=== PATIENT | male | born 1990 | race Caucasian/White ===

== ENCOUNTER 2016-08-05 04:54 | Emergency (ER) | payer OTHER ==
[2016-08-05 05:05] VITALS: TEMP 98.1
[2016-08-05 05:35] LABS: Basophils % (A) 1 %; CH 32.9; CHCM 35.6; Eosinophils # (A) 0.2 k/uL (0-0.7); Eosinophils % (A) 4 %; HCT 42.6 % (39.0-53.0); HDW 2.68; HGB 14.4 gm/dL (13.0-17.5); Luc # (Auto) 0.13; Luc % (Auto) 2; Lymphocytes # (A) 1.2 k/uL (1.0-4.8); Lymphocytes % (A) 20 %; MCH 31.4 pg (25.0-35.0); MCHC 33.8 g/dL (31.0-37.0); MCV 92.8 fL (80.0-100.0); Mean Platelet Volume 6.7; Monocytes # (A) 0.5 k/uL (0-1.0); Monocytes % (A) 8 %; Neutrophils % (A) 66 %; RBC 4.59 m/uL (4.30-5.90); RDW 12.7 % (11.5-15.5); WBC 6.1 k/uL (3.8-10.6); WBC (Perox) 6.37
[2016-08-05 05:45] LABS: ALT 28 U/L (21-72); AST 23 U/L (17-59); Alkaline Phosphatase 66 U/L (38-126); Anion Gap 12 mmol/L; Blood Urea Nitrogen 10 mg/dL (9-20); Calcium 9.3 mg/dL (8.4-10.2); Carbon Dioxide 23 mmol/L (22-30); Chloride 104 mmol/L (98-107); Glucose 100 mg/dL (74-99); Non-African American GFR(MDRD) >60 (>60 ml/min/1.73 sqM); Potassium 3.8 mmol/L (3.5-5.1); Sodium 139 mmol/L (137-145); Total Bilirubin 0.6 mg/dL (0.2-1.3)
--- NOTE | 2016-08-05 07:06 | ED ---
Psych HPI - General Source: patient Mode of arrival: EMS - History of Present Illness MD Complaint: other -: minutes(s) Associated Psychiatric Symptoms: other History of same: Yes <Jb Murillo - Last Filed: 08/05/16 07:06> <Abisai Fisher - Last Filed: 08/05/16 09:57> - General Chief Complaint: Psychiatric Symptoms Stated Complaint: can't sleep Time Seen by Provider: 08/05/16 05:03 - History of Present Illness Initial Comments: This patient is 26-year-old man brought by EMS to be evaluated for worsening of his psychiatric condition. The patient reportedly has a history of schizophrenia and today went to the home of his parents. They reportedly have a restraining order because the patient has at times been violent with them. They phoned EMS who brought the patient here to be evaluated. Here the patient is requesting sleeping pills, stating that he feels like he is going crazy. He is not able to give any additional history. He counters every question from this examiner by asking "are you going to give any sleeping pills?" (Jb Murillo) - Related Data Home Medications Medication Instructions Recorded Confirmed Divalproex Sodium [Divalproex 1,000 mg PO HS 08/05/16 08/05/16 Sodium ER] Divalproex Sodium [Divalproex 500 mg PO QAM 08/05/16 08/05/16 Sodium ER] OLANZapine [ZyPREXA] 20 mg PO HS 08/05/16 08/05/16 QUEtiapine FUMARATE [SEROquel] 400 mg PO HS 08/05/16 08/05/16 Allergies Allergy/AdvReac Type Severity Reaction Status Date / Time No Known Allergies Allergy Verified 08/05/16 05:05 Review of Systems ROS Other: All systems not noted in ROS Statement are negative. Limitations: ROS unobtainable due to patients medical condition <Jb Murillo - Last Filed: 08/05/16 07:06> ROS Other: All systems not noted in ROS Statement are negative. <Abisai Fisher - Last Filed: 08/05/16 09:57> ROS Statement: Those systems with pertinent positive or pertinent negative responses have been documented in the HPI. Past Medical History Past Medical History: No Reported History History of Any Multi-Drug Resistant Organisms: None Reported Past Surgical History: No Surgical Hx Reported Past Psychological History: Anxiety, Bipolar, Schizophrenia Smoking Status: Current every day smoker Past Alcohol Use History: None Reported Past Drug Use History: None Reported <LidiaJb - Last Filed: 08/05/16 07:06> General Exam Limitations: no limitations General appearance: alert, in no apparent distress Head exam: Present: atraumatic, normocephalic Eye exam: Present: normal appearance. Absent: scleral icterus, conjunctival injection ENT exam: Present: normal oropharynx Neck exam: Present: normal inspection Respiratory exam: Present: normal lung sounds bilaterally. Absent: respiratory distress, wheezes, rales, rhonchi, stridor Cardiovascular Exam: Present: regular rate, normal rhythm, normal heart sounds. Absent: systolic murmur, diastolic murmur, rubs, gallop GI/Abdominal exam: Present: soft. Absent: distended, tenderness, guarding, rebound, mass Extremities exam: Present: normal inspection, normal capillary refill. Absent: pedal edema, calf tenderness Neurological exam: Present: alert, normal gait. Absent: motor sensory deficit Psychiatric exam: Present: agitated, flat affect. Absent: homicidal ideation, suicidal ideation Skin exam: Present: warm, dry, intact, normal color. Absent: rash <LidiaJb - Last Filed: 08/05/16 07:06> Medical Decision Making - Lab Data Result diagrams: 08/05/16 05:02 08/05/16 05:02 <Jb Murillo - Last Filed: 08/05/16 07:06> - Lab Data Result diagrams: 08/05/16 05:02 08/05/16 05:02 <Abisai Fisher - Last Filed: 08/05/16 09:57> - Medical Decision Making The patient was evaluated by the [facility] service and will be discharged with outpatient treatment. He currently is not a risk to himself or anyone else. He also was given referrals for housing. (Abisai Fisher) - Lab Data Lab Results 08/05/16 08/05/16 08/05/16 Range/Units 05:02 05:02 05:30 WBC 6.1 (3.8-10.6) k/uL RBC 4.59 (4.30-5.90) m/uL Hgb 14.4 (13.0-17.5) gm/dL Hct 42.6 (39.0-53.0) % MCV 92.8 (80.0-100.0) fL MCH 31.4 (25.0-35.0) pg MCHC 33.8 (31.0-37.0) g/dL RDW 12.7 (11.5-15.5) % Plt Count 272 (150-450) k/uL Neutrophils % 66 % Lymphocytes % 20 % Monocytes % 8 % Eosinophils % 4 % Basophils % 1 % Neutrophils # 4.0 (1.3-7.7) k/uL Lymphocytes # 1.2 (1.0-4.8) k/uL Monocytes # 0.5 (0-1.0) k/uL Eosinophils # 0.2 (0-0.7) k/uL Basophils # 0.0 (0-0.2) k/uL Sodium 139 (137-145) mmol/L Potassium 3.8 (3.5-5.1) mmol/L Chloride 104 (98-107) mmol/L Carbon Dioxide 23 (22-30) mmol/L Anion Gap 12 mmol/L BUN 10 (9-20) mg/dL Creatinine 0.90 (0.66-1.25) mg/dL Est GFR (MDRD) Af Amer >60 (>60 ml/min/1.73 sqM) Est GFR (MDRD) Non-Af >60 (>60 ml/min/1.73 sqM) Glucose 100 H (74-99) mg/dL Calcium 9.3 (8.4-10.2) mg/dL Total Bilirubin 0.6 (0.2-1.3) mg/dL AST 23 (17-59) U/L ALT 28 (21-72) U/L Alkaline Phosphatase 66 (38-126) U/L Total Protein 7.0 (6.3-8.2) g/dL Albumin 4.2 (3.5-5.0) g/dL Urine Opiates Screen Not Detected (NotDetected) Ur Oxycodone Screen Not Detected (NotDetected) Urine Methadone Screen Not Detected (NotDetected) Ur Propoxyphene Screen Not Detected (NotDetected) Ur Barbiturates Screen Not Detected (NotDetected) U Tricyclic Antidepress Not Detected (NotDetected) Ur Phencyclidine Scrn Not Detected (NotDetected) Ur Amphetamines Screen Not Detected (NotDetected) U Methamphetamines Scrn Not Detected (NotDetected) U Benzodiazepines Scrn Not Detected (NotDetected) Urine Cocaine Screen Not Detected (NotDetected) U Marijuana (THC) Screen Not Detected (NotDetected) Disposition <Jb Murillo - Last Filed: 08/05/16 07:06> <Abisai Fisher - Last Filed: 08/05/16 09:57> Clinical Impression: Chronic schizophrenia Disposition: HOME SELF-CARE Condition: Good Instructions: Schizophrenia (ED)
[2016-08-05] MEDS ORDERED: OLANZapine ODT 10 MG TAB PO SCH (09:00)
[2016-08-05 10:26] VITALS: BP 118/62; PULSE 82; RESP 17
== END 2016-08-05 10:25 | disposition home or self-care (01) ==
LOC: EC 04:54
DX: F20.5 Residual schizophrenia (principal); F31.9 Bipolar disorder, unspecified; F17.200 Nicotine dependence, unspecified, uncomplicated; Z79.899 Other long term (current) drug therapy
CPT/HCPCS: 36415; 80053; 80306; 82075; 85025; 99285

== ENCOUNTER 2016-08-05 14:30 | Inpatient (IN) | payer MEDICAID, OTHER ==
--- NOTE | 2016-08-05 15:31 | ED ---
General Adult HPI - General Chief complaint: Altered Mental Status Stated complaint: MENTAL HEALTH Time Seen by Provider: 08/05/16 14:50 Source: patient, EMS, RN notes reviewed Mode of arrival: EMS Limitations: no limitations, altered mental status - History of Present Illness Initial comments: Any sexual male with past history significant for schizophrenia. Patient comes in now he states it's because he cannot get any sleep but is not really making a lot of sense. Patient was here earlier today seen by [facility] and discharged home. Patient at one time stated he made it home and then came back to [place] and a second time he said he went to a homeless intermediate and came from there. An ambulance to bring him back is not apparent to call the ambulance. Patient is unable to complete a thought to tell us what his exact problem is he jumps from topic to topic and is very tangential. Patient denies any suicidal or homicidal ideations. When I walked in the room initially to evaluate him he was making himself vomit because he stated he did not want to food in his belly - Related Data Home Medications Medication Instructions Recorded Confirmed Divalproex Sodium [Divalproex 1,000 mg PO HS 08/05/16 08/05/16 Sodium ER] Divalproex Sodium [Divalproex 500 mg PO QAM 08/05/16 08/05/16 Sodium ER] OLANZapine [ZyPREXA] 20 mg PO HS 08/05/16 08/05/16 QUEtiapine FUMARATE [SEROquel] 400 mg PO HS 08/05/16 08/05/16 Allergies Allergy/AdvReac Type Severity Reaction Status Date / Time No Known Allergies Allergy Verified 08/05/16 14:46 Review of Systems ROS Statement: Those systems with pertinent positive or pertinent negative responses have been documented in the HPI. ROS Other: All systems not noted in ROS Statement are negative. Past Medical History Past Medical History: No Reported History History of Any Multi-Drug Resistant Organisms: None Reported Past Surgical History: No Surgical Hx Reported Past Psychological History: Anxiety, Bipolar, Schizophrenia Smoking Status: Former smoker Past Alcohol Use History: None Reported Past Drug Use History: None Reported General Exam - General Exam Comments Initial Comments: GENERAL: Patient is well-developed and well-nourished. Patient is nontoxic and well- hydrated and is in no acute distress. ENT: Neck is soft and supple. No significant lymphadenopathy is noted. Oropharynx is clear. Moist mucous membranes. Neck has full range of motion without eliciting any pain. EYES: The sclera were anicteric and conjunctiva were pink and moist. Extraocular movements were intact and pupils were equal round and reactive to light. Eyelids were unremarkable. PULMONARY: Unlabored respirations. Good breath sounds bilaterally. No audible rales rhonchi or wheezing was noted. CARDIOVASCULAR: There is a regular rate and rhythm without any murmurs gallops or rubs. ABDOMEN: Soft and nontender with normal bowel sounds. No palpable organomegaly was noted. There is no palpable pulsatile mass. SKIN: Skin is clear with no lesions or rashes and otherwise unremarkable. NEUROLOGIC: Patient is alert and unable to fully assess orientation secondary to the patient not answering all questions asked. Cranial nerves II through XII are grossly intact. Motor and sensory are also intact. Normal speech, volume and content. Symmetrical smile. MUSCULOSKELETAL: Normal extremities with adequate strength and full range of motion. . Patient is unable to even tell us where he has been since his last visit here this morning LYMPHATICS: No significant lymphadenopathy is noted PSYCHIATRIC: Patient has very tangential thought process and is unable to clearly articulate why he is in the emergency department Limitations: no limitations, altered mental status Course Vital Signs 08/05/16 08/05/16 14:47 16:17 Temperature 97 F L Pulse Rate 94 69 Respiratory 20 16 Rate Blood Pressure 119/56 128/58 O2 Sat by Pulse 97 97 Oximetry Medical Decision Making - Medical Decision Making [facility] came to see the patient and decided the patient needed admission. Patient signed in. - Lab Data Lab Results 08/05/16 Range/Units 16:14 Urine Opiates Screen Not Detected (NotDetected) Ur Oxycodone Screen Not Detected (NotDetected) Urine Methadone Screen Not Detected (NotDetected) Ur Propoxyphene Screen Not Detected (NotDetected) Ur Barbiturates Screen Not Detected (NotDetected) U Tricyclic Antidepress Not Detected (NotDetected) Ur Phencyclidine Scrn Not Detected (NotDetected) Ur Amphetamines Screen Not Detected (NotDetected) U Methamphetamines Scrn Not Detected (NotDetected) U Benzodiazepines Scrn Not Detected (NotDetected) Urine Cocaine Screen Not Detected (NotDetected) U Marijuana (THC) Screen Not Detected (NotDetected) Disposition Clinical Impression: Acute exacerbation of chronic schizophrenia Disposition: ADMITTED IP TO THIS HOSP Time of Disposition: 16:53
[2016-08-05] MEDS ORDERED: ZIPRASIDONE 20 MG VIAL IM PRN (17:48)
[2016-08-05] MEDS ORDERED: MAGNESIUM HYDROXIDE 2,400 MG/10 ML CUP PO PRN (17:48)
[2016-08-05] MEDS ORDERED: ACETAMINOPHEN TAB 325 MG TAB PO PRN (17:48)
[2016-08-05] MEDS ORDERED: MAG HYDROX/AL HYDROX/SIMETH 30 ML CUP PO PRN (17:48)
[2016-08-05] MEDS ORDERED: LORazepam 2 MG/ML SYRINGE IM PRN (17:51)
[2016-08-05] MEDS: LORazepam 1 MG TAB PO PRN (18:30)
[2016-08-05 18:31] LABS: Appearance,Urine Clear (Clear); Bilirubin,Urine Negative (Negative); Glucose,Urine (UA) Negative (Negative); Ketones,Urine Negative (Negative); Leukocyte Esterase,Urine Negative (Negative); Nitrite,Urine Negative (Negative); Protein,Urine Negative (Negative); Specific Gravity,Urine 1.013 (1.001-1.035); UA Billing (MACRO vs. MICRO) CHEM; Urobilinogen,Urine <2.0 mg/dL (<2.0)
[2016-08-05 18:50] VITALS: BMI 28.3
[2016-08-05 18:57] VITALS: RESP 18
[2016-08-06] MEDS: LORazepam 1 MG TAB PO PRN ×2 (03:35→15:24)
[2016-08-06] MEDS ORDERED: WATER FOR INJECTION, STERILE 10 ML IV ONE (08:04)
[2016-08-06] MEDS: NICOTINE 14MG/24HR PATCH TRANSDERM SCH (08:04)
[2016-08-06] MEDS ORDERED: ZIPRASIDONE 20 MG VIAL IM ONE (08:04)
[2016-08-06 09:57] LABS: Basophils % (A) 0 %; CH 32.1; CHCM 34.4; Eosinophils # (A) 0.2 k/uL (0-0.7); Eosinophils % (A) 2 %; HCT 45.8 % (39.0-53.0); HGB 15.3 gm/dL (13.0-17.5); Luc # (Auto) 0.11; Luc % (Auto) 1; Lymphocytes # (A) 1.3 k/uL (1.0-4.8); Lymphocytes % (A) 17 %; MCH 31.3 pg (25.0-35.0); MCHC 33.4 g/dL (31.0-37.0); MCV 93.8 fL (80.0-100.0); Mean Platelet Volume 6.9; Monocytes # (A) 0.4 k/uL (0-1.0); Monocytes % (A) 5 %; Neutrophils # (A) 5.8 k/uL (1.3-7.7); Neutrophils % (A) 75 %; RBC 4.88 m/uL (4.30-5.90); RDW 12.6 % (11.5-15.5); WBC 7.7 k/uL (3.8-10.6); WBC (Perox) 7.71
[2016-08-06 10:20] LABS: ALT 23 U/L (21-72); AST 21 U/L (17-59); Alkaline Phosphatase 62 U/L (38-126); Anion Gap 14 mmol/L; Blood Urea Nitrogen 9 mg/dL (9-20); Calcium 9.7 mg/dL (8.4-10.2); Carbon Dioxide 24 mmol/L (22-30); Chloride 105 mmol/L (98-107); Glucose 101 mg/dL (74-99); Non-African American GFR(MDRD) >60 (>60 ml/min/1.73 sqM); Potassium 4.2 mmol/L (3.5-5.1); Sodium 143 mmol/L (137-145); Total Bilirubin 0.6 mg/dL (0.2-1.3); Total Protein 7.1 g/dL (6.3-8.2)
--- NOTE | 2016-08-06 15:54 | P.HP ---
Psychiatric H&P - . H&P Date: 08/06/16 History & Physical: IDENTIFYING DATA: Mr. Rizzo is a 26-year-old homeless single male who has a history of a schizophrenia. HISTORY OF PRESENT ILLNESS: He presented to the emergency department twice yesterday. He stated that he called emergency services because he was not sleeping and was "wigging out". His response to my question about what he meant by "wigging out" was that when he moved his hand he saw "echos." The [facility] liaisons screened him and recommended outpatient treatment and a referral to a fdc. He returned later in the day again by EMS and alleged that he has not slept for "24 days". He has not been taking his psychiatric medication because he believes that "I am no longer schizophrenic." He signed unit voluntarily then completed a 3 day notice. He stated he came to the hospital because he has not slept for 24 hours. He requested to be prescribed a medication to help him sleep and believes that if he "sleeps for 2 days" he would be well. We discussed treatment options and he agreed to resume Seroquel at bedtime. He provided little information about the history of present illness or his past history. He repeated himself frequently during the interview and perseverated on the need for sleep. He denied such psychotic symptoms as auditory or visual hallucinations, ideas reference, thought insertion, thought broadcasting or thought control. PAST PSYCHIATRIC HISTORY: He stated that he has had "8 or 9 times" psychiatric hospitalized. His first hospitalization was at the age of 19. He could would not answer questions about last hospitalization. He does not receive outpatient mental health treatment. PAST MEDICAL HISTORY: He denied history of medical problems ALLERGIES: NO KNOWN DRUG ALLERGIES SUBSTANCE USE HISTORY: He denied use of alcohol or drugs. He denied involvement in a substance abuse treatment program FAMILY PSYCHIATRIC/SUBSTANCE USE HISTORY: He is unaware of family history of mental health or substance use problems LEGAL HISTORY: He is not on probation, parole or has pending charges. He was incarcerated at age 19 for larceny. SOCIAL HISTORY: He was born in [facility] and reportedly raised by his father. He would not answer questions about the involvement of his mother and his upbringing. His parents when he was either 10 years old or 16 years old. He graduated from high school. He is single and has no children. He is unemployed and receives Social Security disability. MENTAL STATUS EXAM: He presented as a disheveled appearing 26-year-old male. He maintained eye contact and appeared to attend to the interview. He had no distinguishing features or prominent physical abnormalities. He had a blunted facial expression. He was alert and oriented to person, place and time. He showed no abnormality of psychomotor activity. He had no abnormal involuntary movements. His gait was slow but steady. His speech was spontaneous with decreased rhythm. He had no articulation difficulties. His affect was blunted but labile. He denied suicidality ideation or wishes. He denied homicidal ideation. He denied depressive cognitions such as hopelessness, helplessness or worthlessness. He perseverated on his need for sleep. He denied ideas of reference and did not express paranoid ideation. His thinking was concrete, perseverative and not organized. His thinking was not incoherent. He did not express clang associations or neologisms. He did not demonstrate blocking. He denied hallucinations and did not appear to be responding to internal stimuli. STRENGTHS: Stable income, good physical health WEAKNESSES: Chronic mental illness, poor compliance with mental health treatment , lack of stable housing IMPRESSION: Is a 26-year-old male who most likely has history of a schizophrenia. He presented voluntarily to the psychiatric unit but signed a request to leave AGAINST MEDICAL ADVICE. He has had multiple psychiatric hospitalizations and no apparent consistent outpatient mental health treatment. He is denying hallucinations and did not express a clear organized delusional belief. His agreed to restart antipsychotic Seroquel. The benefit from continued inpatient treatment including antipsychotic medications and multimodal therapy. He does not appear to meet judicial criteria for involuntary hospitalization at this time. PRINCIPLE DIAGNOSIS: Schizophrenia, chronic paranoid type subacute, poor compliance with psychiatric treatment, lack of housing RECOMMENDATION: Continue inpatient psychiatric treatment. Begin Seroquel 500 mg at bedtime. Ziprasidone 20 mg IM twice a day when necessary and/or lorazepam 1 mg by mouth/IM every 8 hours when necessary for agitation or acute psychosis. Encourage participation in therapeutic groups and activities. Evaluate clinical status response to treatment daily basis. His condition worsens he may meet judicial criteria for involuntary hospital hospitalization otherwise we would discharge him to a fdc and a referral for [facility]. Allergies Allergy/AdvReac Type Severity Reaction Status Date / Time No Known Allergies Allergy Verified 08/05/16 14:46 Vital Signs Temp 98.5 F 08/06/16 03:41 Pulse 84 08/06/16 03:41 Resp 18 08/06/16 03:41 BP 159/93 08/06/16 03:41 Pulse Ox 99 08/05/16 18:56 Intake & Output 08/05/16 08/06/16 08/06/16 18:59 06:59 18:59 Weight 89.6 kg Laboratory Last Values WBC 7.7 k/uL (3.8-10.6) 08/06/16 09:36 RBC 4.88 m/uL (4.30-5.90) 08/06/16 09:36 Hgb 15.3 gm/dL (13.0-17.5) 08/06/16 09:36 Hct 45.8 % (39.0-53.0) 08/06/16 09:36 MCV 93.8 fL (80.0-100.0) 08/06/16 09:36 MCH 31.3 pg (25.0-35.0) 08/06/16 09:36 MCHC 33.4 g/dL (31.0-37.0) 08/06/16 09:36 RDW 12.6 % (11.5-15.5) 08/06/16 09:36 Plt Count 302 k/uL (150-450) 08/06/16 09:36 Neutrophils % 75 % 08/06/16 09:36 Lymphocytes % 17 % 08/06/16 09:36 Monocytes % 5 % 08/06/16 09:36 Eosinophils % 2 % 08/06/16 09:36 Basophils % 0 % 08/06/16 09:36 Neutrophils # 5.8 k/uL (1.3-7.7) 08/06/16 09:36 Lymphocytes # 1.3 k/uL (1.0-4.8) 08/06/16 09:36 Monocytes # 0.4 k/uL (0-1.0) 08/06/16 09:36 Eosinophils # 0.2 k/uL (0-0.7) 08/06/16 09:36 Basophils # 0.0 k/uL (0-0.2) 08/06/16 09:36 Sodium 143 mmol/L (137-145) 08/06/16 09:36 Potassium 4.2 mmol/L (3.5-5.1) 08/06/16 09:36 Chloride 105 mmol/L (98-107) 08/06/16 09:36 Carbon Dioxide 24 mmol/L (22-30) 08/06/16 09:36 Anion Gap 14 mmol/L 08/06/16 09:36 BUN 9 mg/dL (9-20) 08/06/16 09:36 Creatinine 1.04 mg/dL (0.66-1.25) 08/06/16 09:36 Est GFR (MDRD) Af Amer >60 (>60 ml/min/1.73 sqM) 08/06/16 09:36 Est GFR (MDRD) Non-Af >60 (>60 ml/min/1.73 sqM) 08/06/16 09:36 Glucose 101 mg/dL (74-99) H 08/06/16 09:36 Calcium 9.7 mg/dL (8.4-10.2) 08/06/16 09:36 Total Bilirubin 0.6 mg/dL (0.2-1.3) 08/06/16 09:36 AST 21 U/L (17-59) 08/06/16 09:36 ALT 23 U/L (21-72) 08/06/16 09:36 Alkaline Phosphatase 62 U/L (38-126) 08/06/16 09:36 Total Protein 7.1 g/dL (6.3-8.2) 08/06/16 09:36 Albumin 4.4 g/dL (3.5-5.0) 08/06/16 09:36 TSH 1.360 mIU/L (0.465-4.680) 08/06/16 09:36 Urine Color Yellow 08/05/16 16:14 Urine Appearance Clear (Clear) 08/05/16 16:14 Urine pH 7.0 (5.0-8.0) 08/05/16 16:14 Ur Specific [place] 1.013 (1.001-1.035) 08/05/16 16:14 Urine Protein Negative (Negative) 08/05/16 16:14 Urine Glucose (UA) Negative (Negative) 08/05/16 16:14 Urine Ketones Negative (Negative) 08/05/16 16:14 Urine Blood Negative (Negative) 08/05/16 16:14 Urine Nitrate Negative (Negative) 08/05/16 16:14 Urine Bilirubin Negative (Negative) 08/05/16 16:14 Urine Urobilinogen <2.0 mg/dL (<2.0) 08/05/16 16:14 Ur Leukocyte Esterase Negative (Negative) 08/05/16 16:14 Urine Opiates Screen Not Detected (NotDetected) 08/05/16 16:14 Ur Oxycodone Screen Not Detected (NotDetected) 08/05/16 16:14 Urine Methadone Screen Not Detected (NotDetected) 08/05/16 16:14 Ur Propoxyphene Screen Not Detected (NotDetected) 08/05/16 16:14 Ur Barbiturates Screen Not Detected (NotDetected) 08/05/16 16:14 U Tricyclic Antidepress Not Detected (NotDetected) 08/05/16 16:14 Ur Phencyclidine Scrn Not Detected (NotDetected) 08/05/16 16:14 Ur Amphetamines Screen Not Detected (NotDetected) 08/05/16 16:14 U Methamphetamines Scrn Not Detected (NotDetected) 08/05/16 16:14 U Benzodiazepines Scrn Not Detected (NotDetected) 08/05/16 16:14 Urine Cocaine Screen Not Detected (NotDetected) 08/05/16 16:14 U Marijuana (THC) Screen Not Detected (NotDetected) 08/05/16 16:14 08/06/16 11:07 08/06/16 11:50
[2016-08-06] MEDS ORDERED: QUEtiapine 100 MG TAB PO SCH (21:00)
[2016-08-07 06:41] VITALS: BP 104/53; PULSE 48; TEMP 98.2
[2016-08-07] MEDS: NICOTINE 14MG/24HR PATCH TRANSDERM SCH (09:25)
--- NOTE | 2016-08-07 13:01 | P.DS ---
Providers Date of admission: 08/05/16 17:38 Attending physician: Blaze Spangler MD Consults: 08/05/16 17:48 Consult Physician Routine Consulting Provider: Blaze Bashir Consult Reason/Comments: Follow up H & P Do you want consulting provider notified?: Yes Primary care physician: Stated None - Discharge Diagnosis(es) (1) Poor compliance with medication Current Visit: Yes Status: Chronic Priority: High (2) Chronic schizophrenia Current Visit: No Status: Chronic Priority: High Hospital Course: Mr. Rizzo is a 26-year-old homeless single male who has a history of a schizophrenia. He presented to the emergency department twice yesterday. He stated that he called emergency services because he was not sleeping and was "wigging out". His response to my question about what he meant by "wigging out" was that when he moved his hand he saw "echos." The [facility] liaisons screened him and recommended outpatient treatment and a referral to a correction. He returned later in the day again by EMS and alleged that he has not slept for "24 days". He has not been taking his psychiatric medication because he believes that "I am no longer schizophrenic." He signed unit voluntarily then completed a 3 day notice. He stated he came to the hospital because he has not slept for 24 hours. He requested to be prescribed a medication to help him sleep and believes that if he "sleeps for 2 days" he would be well. We discussed treatment options and he agreed to resume Seroquel at bedtime. He provided little information about the history of present illness or his past history. He repeated himself frequently during the interview and perseverated on the need for sleep. He denied such psychotic symptoms as auditory or visual hallucinations, ideas reference, thought insertion, thought broadcasting or thought control. He has had "8 or 9 times" psychiatric hospitalized. His first hospitalization was at the age of 19. He could would not answer questions about last hospitalization. He does not receive outpatient mental health treatment. HOSPITAL COURSE: We admitted him voluntarily to the psychiatric unit under the care of this consumer loan underwriter. Soon after admission and he signed a an Intent to Terminate Treatment. I met with him on several occasions to discuss his request to be discharged. His thinking was not fully organized but he did not demonstrate behaviors that suggested he was a threat to himself or others or the inability to care for his himself. He requested to restart quetiapine and negotiated a dose of 600 mg at bedtime. He demonstrated no behavioral problems were episodes of behavioral dyscontrol. He plans to returned to several [facility] where he may stay at a correction affiliated with a [facility]. He requested a prescription of Seroquel to continue after discharge. Social work services assistance with referral to local [facility] mental health. Patient Condition at Discharge: Stable Plan - Discharge Summary New Discharge Prescriptions: Nicotine 14Mg/24Hr Patch [Habitrol] 1 patch TRANSDERM DAILY 14 Days QUEtiapine [SEROquel] 600 mg PO HS 30 Days Discharge Medication List Nicotine 14Mg/24Hr Patch [Habitrol] 1 patch TRANSDERM DAILY 14 Days 08/07/16 [Rx ] QUEtiapine [SEROquel] 600 mg PO HS 30 Days 08/07/16 [Rx] Follow up Appointment(s)/Referral(s): intake,intake [Other] - 1 Week None,Stated [Primary Care Provider] - 1-2 days Discharge Disposition: HOME SELF-CARE
[2016-08-07] MEDS ORDERED: QUEtiapine 200 MG TAB PO SCH (21:00)
== END 2016-08-07 16:06 | disposition home or self-care (01) | DRG 885 ==
LOC: EC 14:30 → 3MHU 17:38
PROVIDERS: ADMIT Psychiatry & Neurology Psychiatry; ATTEND Psychiatry & Neurology Psychiatry
DX: F20.0 Paranoid schizophrenia (principal); Z91.14 Patient's other noncompliance with medication regimen; F31.9 Bipolar disorder, unspecified; Z59.0 Homelessness; F41.9 Anxiety disorder, unspecified; Z87.891 Personal history of nicotine dependence; Z79.899 Other long term (current) drug therapy
CPT/HCPCS: 80053; 80306; 81003; 82075; 84443; 85025; 99285

== ENCOUNTER 2017-02-14 14:41 | Inpatient (IN) | payer MEDICAID, OTHER ==
--- NOTE | 2017-02-14 15:03 | ED ---
General Adult HPI - General Chief complaint: Psychiatric Symptoms Stated complaint: MENTAL HEALTH Time Seen by Provider: 02/14/17 14:50 Source: EMS, RN notes reviewed Mode of arrival: EMS Limitations: no limitations - History of Present Illness Initial comments: This is a 26-year-old male who comes into the emergency department because he was threatening at home and the father wanted the patient to be evaluated. Patient we are told will be of petitioned patient states he is a schizophrenic who is not taking his medications any longer because he doesn't need them. Patient himself does not believe he needs to be here. Patient denies any suicidal ideations denies wanting to hurt anybody. Patient is uncooperative. And insisting he wants to leave. Mother showed up and stated that the patient had walked home from [place] to [facility] and was pounding on the dorsum. Mom states that the patient was seen and hearing things according to her she is petitioned him currently - Related Data Home Medications Medication Instructions Recorded Confirmed No Known Home Medications [No 02/14/17 02/14/17 Known Home Medications] Allergies Allergy/AdvReac Type Severity Reaction Status Date / Time No Known Allergies Allergy Verified 02/14/17 16:02 Review of Systems ROS Statement: Those systems with pertinent positive or pertinent negative responses have been documented in the HPI. ROS Other: All systems not noted in ROS Statement are negative. Past Medical History Past Medical History: No Reported History History of Any Multi-Drug Resistant Organisms: None Reported Past Surgical History: No Surgical Hx Reported Past Psychological History: Anxiety, Bipolar, Schizoaffective Disorder, Schizophrenia Smoking Status: Current every day smoker Past Alcohol Use History: None Reported Past Drug Use History: None Reported General Exam - General Exam Comments Initial Comments: GENERAL: Patient is well-developed and well-nourished. Patient is nontoxic and well- hydrated and is in no acute distress. ENT: Neck is soft and supple. No significant lymphadenopathy is noted. Oropharynx is clear. Moist mucous membranes. Neck has full range of motion without eliciting any pain. EYES: The sclera were anicteric and conjunctiva were pink and moist. Extraocular movements were intact and pupils were equal round and reactive to light. Eyelids were unremarkable. PULMONARY: Unlabored respirations. Good breath sounds bilaterally. No audible rales rhonchi or wheezing was noted. CARDIOVASCULAR: Heart is a regular rate and rhythm ABDOMEN: Soft and nontender with normal bowel sounds. No palpable organomegaly was noted. There is no palpable pulsatile mass. SKIN: Skin is clear with no lesions or rashes and otherwise unremarkable. NEUROLOGIC: Patient is alert and oriented patient does not answer my questions about orientation. Cranial nerves II through XII are grossly intact. Motor and sensory are also intact. Normal speech, volume and content. Symmetrical smile. MUSCULOSKELETAL: Normal extremities with adequate strength and full range of motion. No lower extremity swelling or edema. No calf tenderness. LYMPHATICS: No significant lymphadenopathy is noted PSYCHIATRIC: Patient denies any suicidal homicidal ideations to me patient does not want to stay he does not believe he needs any treatment and does not believe he needs to take his medications Limitations: no limitations Course Vital Signs 02/14/17 14:49 Temperature 97.5 F L Pulse Rate 69 Respiratory 18 Rate Blood Pressure 149/85 O2 Sat by Pulse 95 Oximetry Medical Decision Making - Medical Decision Making Dr. Tuttle will be taking care of the patient at 5 PM - Lab Data Lab Results 02/14/17 02/14/17 Range/Units 15:06 15:18 Urine Opiates Screen Not Detected (NotDetected) Ur Oxycodone Screen Not Detected (NotDetected) Urine Methadone Screen Not Detected (NotDetected) Ur Propoxyphene Screen Not Detected (NotDetected) Ur Barbiturates Screen Not Detected (NotDetected) U Tricyclic Antidepress Not Detected (NotDetected) Ur Phencyclidine Scrn Not Detected (NotDetected) Ur Amphetamines Screen Not Detected (NotDetected) U Methamphetamines Scrn Not Detected (NotDetected) U Benzodiazepines Scrn Not Detected (NotDetected) Urine Cocaine Screen Not Detected (NotDetected) U Marijuana (THC) Screen Not Detected (NotDetected) Serum Alcohol <10 mg/dL Disposition Clinical Impression: Acute exacerbation of chronic schizophrenia Disposition: TRANSFER TO PSYCH HOSP/UNIT Referrals: None,Stated [Primary Care Provider] - 1-2 days Time of Disposition: 17:02
[2017-02-14 17:18] LABS: Basophils # (A) 0.1 k/uL (0-0.2); Basophils % (A) 1 %; CH 32.2; CHCM 35.9; Eosinophils # (A) 0.2 k/uL (0-0.7); Eosinophils % (A) 2 %; HCT 47.1 % (39.0-53.0); HDW 2.84; HGB 16.1 gm/dL (13.0-17.5); Luc # (Auto) 0.09; Luc % (Auto) 1; Lymphocytes # (A) 1.5 k/uL (1.0-4.8); Lymphocytes % (A) 20 %; MCH 30.8 pg (25.0-35.0); MCHC 34.2 g/dL (31.0-37.0); MCV 90.1 fL (80.0-100.0); Mean Platelet Volume 7.9; Monocytes # (A) 0.5 k/uL (0-1.0); Monocytes % (A) 7 %; Neutrophils % (A) 69 %; RBC 5.22 m/uL (4.30-5.90); RDW 13.8 % (11.5-15.5); WBC 7.3 k/uL (3.8-10.6)
[2017-02-14 17:23] LABS: ALT 39 U/L (21-72); AST 25 U/L (17-59); Alkaline Phosphatase 87 U/L (38-126); Anion Gap 15 mmol/L; Blood Urea Nitrogen 14 mg/dL (9-20); Calcium 9.8 mg/dL (8.4-10.2); Carbon Dioxide 21 mmol/L (22-30); Chloride 105 mmol/L (98-107); Glucose 102 mg/dL (74-99); Non-African American GFR(MDRD) >60 (>60 ml/min/1.73 sqM); Potassium 3.9 mmol/L (3.5-5.1); Sodium 141 mmol/L (137-145); Total Bilirubin 0.3 mg/dL (0.2-1.3); Total Protein 7.7 g/dL (6.3-8.2)
[2017-02-14] MEDS ORDERED: LORazepam 1 MG TAB PO STA (17:28)
[2017-02-14] MEDS ORDERED: HALOPERIDOL LACTATE 5 MG/ML 1 ML VIAL IM STA (17:47)
[2017-02-15] MEDS ORDERED: LORazepam 1 MG TAB PO STA ×2 (10:09→18:22)
[2017-02-15] MEDS ORDERED: QUEtiapine 400 MG TAB PO STA (18:21)
[2017-02-16] MEDS ORDERED: LORazepam 1 MG TAB PO STA ×2 (14:35→20:17)
[2017-02-16] MEDS ORDERED: QUEtiapine 400 MG TAB PO STA (20:16)
[2017-02-16] MEDS ORDERED: MAG HYDROX/AL HYDROX/SIMETH 30 ML CUP PO PRN (22:38)
[2017-02-16] MEDS ORDERED: ACETAMINOPHEN TAB 325 MG TAB PO PRN (22:38)
[2017-02-16] MEDS ORDERED: LORazepam 1 MG TAB PO PRN (22:38)
[2017-02-16] MEDS ORDERED: MAGNESIUM HYDROXIDE 2,400 MG/10 ML CUP PO PRN (22:38)
[2017-02-16] MEDS ORDERED: ZIPRASIDONE 20 MG VIAL IM PRN (22:38)
[2017-02-16] MEDS ORDERED: LORazepam 2 MG/ML SYRINGE IM PRN (22:53)
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
[2017-02-17 07:21] VITALS: BP 138/71; PULSE 59; RESP 18; TEMP 97.7
[2017-02-17 09:54] LABS: Basophils % (A) 1 %; CHCM 34.4; Eosinophils # (A) 0.2 k/uL (0-0.7); Eosinophils % (A) 3 %; HCT 46.9 % (39.0-53.0); HDW 2.86; HGB 15.9 gm/dL (13.0-17.5); Luc # (Auto) 0.11; Luc % (Auto) 2; Lymphocytes # (A) 1.3 k/uL (1.0-4.8); Lymphocytes % (A) 20 %; MCH 30.8 pg (25.0-35.0); MCV 90.6 fL (80.0-100.0); Mean Platelet Volume 6.1; Monocytes # (A) 0.4 k/uL (0-1.0); Monocytes % (A) 6 %; Neutrophils # (A) 4.3 k/uL (1.3-7.7); Neutrophils % (A) 68 %; RBC 5.17 m/uL (4.30-5.90); RDW 13.1 % (11.5-15.5); WBC 6.4 k/uL (3.8-10.6); WBC (Perox) 6.47
[2017-02-17 10:21] LABS: ALT 37 U/L (21-72); AST 20 U/L (17-59); Alkaline Phosphatase 72 U/L (38-126); Anion Gap 10 mmol/L; Blood Urea Nitrogen 16 mg/dL (9-20); Calcium 9.8 mg/dL (8.4-10.2); Carbon Dioxide 29 mmol/L (22-30); Chloride 103 mmol/L (98-107); Glucose 78 mg/dL (74-99); Non-African American GFR(MDRD) >60 (>60 ml/min/1.73 sqM); Potassium 4.4 mmol/L (3.5-5.1); Sodium 142 mmol/L (137-145); Total Bilirubin 0.4 mg/dL (0.2-1.3); Total Protein 7.5 g/dL (6.3-8.2)
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
== END 2017-02-17 16:19 | DRG 885 ==
LOC: EC 14:41 → 3MHU 02-16 21:44
PROVIDERS: ADMIT Psychiatry & Neurology Psychiatry; ATTEND Psychiatry & Neurology Psychiatry
DX: F20.5 Residual schizophrenia (principal); Z91.14 Patient's other noncompliance with medication regimen; R45.851 Suicidal ideations; F17.200 Nicotine dependence, unspecified, uncomplicated; Z59.0 Homelessness
CPT/HCPCS: 36415; 80053; 80306; 80320; 82075; 84443; 85025; 96372; 99285

== ENCOUNTER 2017-03-05 13:56 | Emergency (ER) | payer OTHER ==
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
[2017-03-05 15:58] LABS: Basophils % (A) 0 %; CH 32.3; CHCM 35.5; Eosinophils # (A) 0.2 k/uL (0-0.7); Eosinophils % (A) 2 %; HCT 45.2 % (39.0-53.0); HDW 2.61; Luc # (Auto) 0.09; Luc % (Auto) 1; Lymphocytes # (A) 1.3 k/uL (1.0-4.8); Lymphocytes % (A) 12 %; MCH 30.4 pg (25.0-35.0); MCHC 33.2 g/dL (31.0-37.0); MCV 91.5 fL (80.0-100.0); Mean Platelet Volume 6.5; Monocytes # (A) 0.9 k/uL (0-1.0); Monocytes % (A) 8 %; Neutrophils # (A) 8.9 k/uL (1.3-7.7); Neutrophils % (A) 78 %; RBC 4.94 m/uL (4.30-5.90); RDW 13.7 % (11.5-15.5); WBC 11.4 k/uL (3.8-10.6); WBC (Perox) 11.21
[2017-03-05 16:09] LABS: Anion Gap 13 mmol/L; Blood Urea Nitrogen 13 mg/dL (9-20); Calcium 9.6 mg/dL (8.4-10.2); Carbon Dioxide 25 mmol/L (22-30); Chloride 102 mmol/L (98-107); Glucose 82 mg/dL (74-99); Non-African American GFR(MDRD) >60 (>60 ml/min/1.73 sqM); Potassium 4.4 mmol/L (3.5-5.1); Sodium 140 mmol/L (137-145)
[2017-03-05] MEDS ORDERED: ACETAMINOPHEN TAB 500 MG TAB PO STA (16:42)
[2017-03-05] MEDS ORDERED: LORazepam 1 MG TAB PO STA (17:53)
[2017-03-05] MEDS: LORazepam 1 MG TAB PO SCH (21:25)
[2017-03-05] MEDS: DIVALPROEX ER 500 MG TAB.ER.24H PO SCH (21:25)
[2017-03-05] MEDS: risperiDONE 1 MG TAB PO SCH (21:25)
[2017-03-06] MEDS ORDERED: risperiDONE 1 MG TAB PO SCH (09:00)
[2017-03-06] MEDS: LORazepam 1 MG TAB PO SCH ×2 (12:53→21:20)
[2017-03-06] MEDS: DIVALPROEX ER 500 MG TAB.ER.24H PO SCH ×2 (12:54→21:20)
[2017-03-06] MEDS: risperiDONE 1 MG TAB PO SCH (21:20)
[2017-03-06 21:25] VITALS: BP 123/66
[2017-03-07 06:05] VITALS: PULSE 68; RESP 16; TEMP 98
== END 2017-03-07 06:33 ==
LOC: EC 13:56
DX: G47.00 Insomnia, unspecified (principal); F60.0 Paranoid personality disorder; F25.9 Schizoaffective disorder, unspecified; F31.9 Bipolar disorder, unspecified; F41.9 Anxiety disorder, unspecified; F17.200 Nicotine dependence, unspecified, uncomplicated
CPT/HCPCS: 36415; 80048; 80164; 80306; 82075; 85025; 99285